=== PATIENT | female | born 1995 | race Caucasian/White ===

== ENCOUNTER 2024-09-06 19:47 | Inpatient (IN) | payer OTHER ==
--- NOTE | 2024-09-06 21:56 | ED ---
Recheck HPI - General Source: patient, RN notes reviewed Mode of arrival: ambulatory Limitations: no limitations <Kathie Guevara - Last Filed: 09/06/24 21:54> <Rachael Carey - Last Filed: 09/07/24 03:01> - General Chief Complaint: Recheck/Abnormal Lab/Rx Stated Complaint: R side blurred vision,feet swollen,Rash Time Seen by Provider: 09/06/24 21:54 - History of Present Illness Initial Comments: Quick [id number] female presenting for MS workup. States she was sent by [facility] Dr. White for an admission for an MS workup. Reports right- sided vision loss over the past week. She was diagnosed with optic neuritis by [facility] and told she has symptoms of MS. (Kathie Guevara) 29-year-old female presents to the emergency department for evaluation of visual changes. Patient states that s she has been dealing with blurred vision in her right eye for around 2 weeks. She states that she saw ophthalmology, Dr. White as an outpatient on Monday. He advised her to come to the emergency department because there was concern for optic neuritis. The patient states that she was unable to come in on Monday because of the court and therefore she presented today. She denies any fever, chills. She does admit to some pain above her right eye. She also endorses itching throughout her body (Rachael Carey) - Related Data Allergies Allergy/AdvReac Type Severity Reaction Status Date / Time No Known Allergies Allergy Verified 09/06/24 19:54 Review of Systems ROS Other: All systems not noted in ROS Statement are negative. <Kathie Guevara - Last Filed: 09/06/24 21:54> ROS Other: All systems not noted in ROS Statement are negative. <Rachael Carey - Last Filed: 09/07/24 03:01> ROS Statement: Those systems with pertinent positive or pertinent negative responses have been documented in the HPI. Past Medical History Past Medical History: No Reported History History of Any Multi-Drug Resistant Organisms: None Reported Past Surgical History: No Surgical Hx Reported Past Psychological History: No Psychological Hx Reported Smoking Status: Never smoker Past Alcohol Use History: None Reported Past Drug Use History: None Reported <Kathie Guevara - Last Filed: 09/06/24 21:54> General Exam Limitations: no limitations <Kathie Guevara - Last Filed: 09/06/24 21:54> Limitations: no limitations General appearance: alert, in no apparent distress Head exam: Present: atraumatic, normocephalic, normal inspection Eye exam: Present: PERRL, EOMI, other (Patient acuity right eye 20/70, left eye 20/40, intraocular pressures 10 bilaterally,). Absent: scleral icterus, conjunctival injection, periorbital swelling ENT exam: Present: normal exam, mucous membranes moist, TM's normal bilaterally, normal external ear exam Neck exam: Present: normal inspection. Absent: tenderness, meningismus, lymphadenopathy Respiratory exam: Present: normal lung sounds bilaterally. Absent: respiratory distress, wheezes, rales, rhonchi, stridor Cardiovascular Exam: Present: regular rate, normal rhythm, normal heart sounds. Absent: systolic murmur, diastolic murmur, rubs, gallop, clicks GI/Abdominal exam: Present: soft, normal bowel sounds. Absent: distended, tenderness, guarding, rebound, rigid Extremities exam: Present: normal inspection, full ROM, normal capillary refill. Absent: tenderness, pedal edema, joint swelling, calf tenderness Back exam: Present: normal inspection Neurological exam: Present: alert, oriented X3, CN II-XII intact Expanded Patient oriented to: Present: person, place, time Speech: Present: fluid speech Cranial nerves: EOM's Intact: Normal, Facial Sensation: Normal, Facial Palsy with Forehead Movement: Normal (None) Ataxia: Absent: yes Cerebellar function: Finger to Nose: Normal, Heel to Johnson: Normal Sensory exam: Upper Extremity Light Touch: Normal, Lower Extremity Light Touch: Normal Motor strength exam: RUE: 5, LUE: 5, RLE: 5, LLE: 5 Eye Response: (4) open spontaneously Motor Response: (6) obeys commands Verbal Response: (5) oriented Vanessa Total: 15 Psychiatric exam: Present: normal affect, normal mood Skin exam: Present: warm, dry, intact, normal color. Absent: rash <Rachael Carey - Last Filed: 09/07/24 03:01> - General Exam Comments Initial Comments: Visual Physical Exam Vital signs reviewed General: Well-appearing, nontoxic, no acute distress. Head: Normocephalic, atraumatic Eyes: PERRLA, EOMI ENT: Airway patent Chest: Nonlabored breathing Skin: No visual rash, normal skin tone Neuro: Alert and oriented 3 Musculoskeletal: No gross abnormalities (Kathie Guevara) Course Vital Signs 09/06/24 09/07/24 09/07/24 19:50 00:58 02:59 Temperature 98.3 F 97.6 F 98.1 F Pulse Rate 107 H 89 82 Respiratory 20 22 18 Rate Blood Pressure 148/87 120/84 119/78 O2 Sat by Pulse 100 100 98 Oximetry Medical Decision Making <Kathie Guevara - Last Filed: 09/06/24 21:54> - Lab Data Result diagrams: 09/06/24 22:41 09/06/24 22:41 <Rachael Carey - Last Filed: 09/07/24 03:01> - Medical Decision Making I completed the quick note portion of this chart signed Kathie Guevara PA-C (Kathie Guevara) Was pt. sent in by a medical professional or institution ([facility], [facility], urgent care, hospital, or longterm...) When possible be specific @ -No Did you speak to anyone other than the patient for history (EMS, parent, family, police, friend...)? What history was obtained from this source @ -No Did you review nursing and triage notes (agree or disagree)? Why? @ -I reviewed and agree with nursing and triage notes Were old charts reviewed (outside hosp., previous admission, EMS record, old EKG, old radiological studies, urgent care reports/EKG's, longterm records)? Report findings @ -No old charts were reviewed Differential Diagnosis (chest pain, altered mental status, abdominal pain women, abdominal pain men, vaginal bleeding, weakness, fever, dyspnea, syncope, headache, dizziness, GI bleed, back pain, seizure, CVA, palpatations, mental health, musculoskeletal)? @ -Differential Headache: Migraine, tension, cluster, carbon monoxide, central venous thrombosis, pension karma temporal arteritis, acute closure glaucoma, intercranial hemorrhage, mastoiditis, sinusitis, head injury, this is not meant to be an all-inclusive li st. EKG interpreted by me (3pts min.). @ -None X-rays interpreted by me (1pt min.). @ -None done CT interpreted by me (1pt min.). @ -CT brain shows no acute process C CTA of the head and neck shows no significant stenosis, no evidence of dissection U/S interpreted by me (1pt. min.). @ -None done What testing was considered but not performed or refused? (CT, X-rays, U/S, labs)? Why? @ -None What meds were considered but not given or refused? Why? @ -None Did you discuss the management of the patient with other professionals (professionals i.e. DrKamini, PA, [facility], lab, RT, psych nurse, high school social studies tutor, fruit or nut farm worker, teacher, [employer] plans staff officer, high risk case manager)? Give summary @ -Management discussed with Dr. Lopez White recommends high-dose steroids, 1000 mg Solu-Medrol Was smoking cessation discussed for >3mins.? @ -No Was critical care preformed (if so, how long)? @ -No Were there social determinants of health that impacted care today? How? (Homelessness, low income, unemployed, alcoholism, drug addiction, transportation, low edu. Level, literacy, decrease access to med. care, retirement, rehab)? @ -No Was there de-escalation of care discussed even if they declined (Discuss DNR or withdrawal of care, Hospice)? DNR status @ -No What co-morbidities impacted this encounter? (DM, HTN, Smoking, COPD, CAD, Cancer, CVA, ARF, Chemo, Hep., AIDS, mental health diagnosis, sleep apnea, morbid obesity)? @ -None Was patient admitted / discharged? Hospital course, mention meds given and route, prescriptions, significant lab abnormalities, going to OR and other pertinent info. @ -Admitted patient presented emergency department for evaluation of visual changes x 2 weeks. Saw her gas pump attendant who was concerned about optic neuritis as a presenting symptom of MS and she was advised to come to the emerg ency department. Patient does note family history. Laboratory studies obtained including CBC, CMP, CRP. CBC on actionable, no significant leukocytosis, hemoglobin 12.8; CMP shows very mild transaminitis, CRP 1.1. ESR is pending. Also pending is KIMBERLY, MARICARMEN, hemoglobin A1c, HIV, Lyme antibody, QuantiFERON, RF, treponema antibody, B12, TSH. CT brain and CTA of the head and neck were obtained pending the results. The patient will be admitted to the hospital on high-dose steroids per the recommendation of Dr. White. She is understanding agreeable with this plan. Patient stable at time of admission. Case discussed with Dr. Mar Undiagnosed new problem with uncertain prognosis? @ -No Drug Therapy requiring intensive monitoring for toxicity (Heparin, Nitro, Insulin, Cardizem)? @ -No Were any procedures done? @ -No Diagnosis/symptom? @ -Visual changes, headache Acute, or Chronic, or Acute on Chronic? @ -Acute Uncomplicated (without systemic symptoms) or Complicated (systemic symptoms)? @ -Complicated Side effects of treatment? @ -No Exacerbation, Progression, or Severe Exacerbation? @ -No Poses a threat to life or bodily function? How? (Chest pain, [place], [place], pneumonia, PE, COPD, DKA, ARF, appy, cholecystitis, CVA, Diverticulitis, Homicidal, Suicidal, threat to staff... and all critical care pts) @ -No (Rachael Carey) - Lab Data Lab Results 09/06/24 09/06/24 Range/Units 22:41 22:41 WBC 6.2 (3.8-10.6) k/uL RBC 4.37 (3.80-5.40) m/uL Hgb 12.8 (11.4-16.0) gm/dL Hct 38.7 (34.0-46.0) % MCV 88.5 (80.0-100.0) fL MCH 29.3 (25.0-35.0) pg MCHC 33.1 (31.0-37.0) g/dL RDW 13.2 (11.5-15.5) % Plt Count 235 (150-450) k/uL MPV 10.0 Neutrophils % 59 % Lymphocytes % 27 % Monocytes % 6 % Eosinophils % 6 % Basophils % 0 % Neutrophils # 3.6 (1.3-7.7) k/uL Lymphocytes # 1.7 (1.0-4.8) k/uL Monocytes # 0.4 (0-1.0) k/uL Eosinophils # 0.4 (0-0.7) k/uL Basophils # 0.0 (0-0.2) k/uL ESR 28 H (0-20) mm/Hr Sodium 137 (137-145) mmol/L Potassium 3.8 (3.5-5.1) mmol/L Chloride 102 (98-107) mmol/L Carbon Dioxide 29 (22-30) mmol/L Anion Gap 6 mmol/L BUN 6 L (7-17) mg/dL Creatinine 0.76 (0.52-1.04) mg/dL Est GFR (CKD-EPI)AfAm >90 (>60 ml/min/1.73 sqM) Est GFR (CKD-EPI)NonAf >90 (>60 ml/min/1.73 sqM) Glucose 92 (74-99) mg/dL Calcium 9.1 (8.4-10.2) mg/dL Total Bilirubin 0.2 (0.2-1.3) mg/dL AST 39 H (14-36) U/L ALT 37 H (4-34) U/L Alkaline Phosphatase 84 (38-126) U/L C-Reactive Protein 1.1 H (<1.0) mg/dL Total Protein 6.6 (6.3-8.2) g/dL Albumin 4.0 (3.5-5.0) g/dL Disposition <Kathie Guevara - Last Filed: 09/06/24 21:54> Is patient prescribed a controlled substance at d/c from ED?: No <Rachael Carey - Last Filed: 09/07/24 03:01> Clinical Impression: Blurred vision, Headache Disposition: ADMITTED IP TO THIS HOSP Condition: Stable
[2024-09-06 23:12] LABS: Basophils % (A) 0 %; Eosinophils # (A) 0.4 k/uL (0-0.7); Eosinophils % (A) 6 %; HCT 38.7 % (34.0-46.0); HGB 12.8 gm/dL (11.4-16.0); Lymphocytes # (A) 1.7 k/uL (1.0-4.8); Lymphocytes % (A) 27 %; MCH 29.3 pg (25.0-35.0); MCHC 33.1 g/dL (31.0-37.0); MCV 88.5 fL (80.0-100.0); Monocytes # (A) 0.4 k/uL (0-1.0); Monocytes % (A) 6 %; Neutrophils # (A) 3.6 k/uL (1.3-7.7); Neutrophils % (A) 59 %; Platelet Count 235 k/uL (150-450); RBC 4.37 m/uL (3.80-5.40); RDW 13.2 % (11.5-15.5); WBC 6.2 k/uL (3.8-10.6)
[2024-09-06 23:37] LABS: ALT 37 U/L (4-34); AST 39 U/L (14-36); African American GFR (CKD) >90 (>60 ml/min/1.73 sqM); Alkaline Phosphatase 84 U/L (38-126); Anion Gap 6 mmol/L; Blood Urea Nitrogen 6 mg/dL (7-17); C Reactive Protein 1.1 mg/dL (<1.0); Calcium 9.1 mg/dL (8.4-10.2); Carbon Dioxide 29 mmol/L (22-30); Chloride 102 mmol/L (98-107); Glucose 92 mg/dL (74-99); Non-African American GFR(CKD) >90 (>60 ml/min/1.73 sqM); Potassium 3.8 mmol/L (3.5-5.1); Sodium 137 mmol/L (137-145); Total Bilirubin 0.2 mg/dL (0.2-1.3); Total Protein 6.6 g/dL (6.3-8.2)
[2024-09-07] MEDS: methylPREDNISolone SOD SUCCI 125 MG/2 ML VIAL IV STA (00:42)
[2024-09-07] MEDS: methylPREDNISolone SOD SUCCIN 1,000 MG in SODIUM CHLORIDE 0.9% 250 ML IVPB ONE (00:54)
[2024-09-07] MEDS ORDERED: NALOXONE 0.4 MG/ML 1 ML VIAL IV PRN (01:10)
--- NOTE | 2024-09-07 01:27 | CT ---
EXAM: CT Angiography Head With Intravenous Contrast CLINICAL HISTORY: ITS.REASON CT Reason: vision loss TECHNIQUE: Axial computed tomographic angiography images of the head with intravenous contrast. CTDI is 9.6 mGy and DLP is 9.6 mGy-cm. This CT exam was performed using one or more of the following dose reduction techniques: automated exposure control, adjustment of the mA and/or kV according to patient size, and/or use of iterative reconstruction technique. MIP reconstructed images were created and reviewed. COMPARISON: No relevant prior studies available. FINDINGS: Right internal carotid artery: No significant stenosis. 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 Right anterior cerebral artery: No significant stenosis. No aneurysm. Right middle cerebral artery: No significant stenosis. No aneurysm. Right posterior cerebral artery: No significant stenosis. No aneurysm. Right vertebral artery: Unremarkable. Left internal carotid artery: No significant stenosis. No aneurysm. Left anterior cerebral artery: No significant stenosis. No aneurysm. Left middle cerebral artery: No significant stenosis. No aneurysm. Left posterior cerebral artery: No significant stenosis. No aneurysm. Left vertebral artery: Unremarkable. Basilar artery: No significant stenosis. No aneurysm. IMPRESSION: No significant stenosis. 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 EXAM: CT Angiography Neck With Intravenous Contrast CLINICAL HISTORY: ITS.REASON CT Reason: vision loss TECHNIQUE: Routine carotid CT angiography protocol was performed with intravenous contrast. NASCET criteria using the distal ICAs for comparison were used for evaluation of stenoses. CTDI is 13.2 mGy and DLP is 514.9 mGy-cm. This CT exam was performed using one or more of the following dose reduction techniques: automated exposure control, adjustment of the mA and/or kV according to patient size, and/or use of iterative reconstruction technique. MIP reconstructed images were created and reviewed. COMPARISON: None. FINDINGS: VASCULATURE: Right common carotid artery: No significant stenosis. No dissection. Right internal carotid artery: No significant stenosis. No dissection. Right vertebral artery: No significant stenosis. No dissection. Left common carotid artery: No significant stenosis. No dissection. Left internal carotid artery: No significant stenosis. No dissection. Left vertebral artery: No significant stenosis. No dissection. NECK: Lung apices: 15 mm fibrotic process in the right lung apex CAROTID STENOSIS REFERENCE USING NASCET CRITERIA: % ICA stenosis = (1 - narrowest ICA diameter/diameter of distal cervical ICA) x 100. Mild - <50% stenosis. Moderate - 50-69% stenosis. Severe - 70-94% stenosis. Near occlusion - 95-99% stenosis. Occluded - 100% stenosis. IMPRESSION: No significant stenosis. 15 mm fibrotic process in the right lung apex, correlate with history of granulomatous disease.
[2024-09-07] MEDS: SODIUM CHLORIDE 0.9% 1,000 ML IV SCH (01:34)
[2024-09-07] MEDS: MORPHINE SULFATE 4 MG/ML SYRINGE IV PRN (01:35)
--- NOTE | 2024-09-07 01:44 | CT ---
EXAM: CT Head Without Intravenous Contrast CLINICAL HISTORY: ITS.REASON CT Reason: vision loss TECHNIQUE: Axial computed tomography images of the head/brain without intravenous contrast. CTDI is 48.8 mGy and DLP is 1042 mGy-cm. This CT exam was performed using one or more of the following dose reduction techniques: automated exposure control, adjustment of the mA and/or kV according to patient size, and/or use of iterative reconstruction technique. COMPARISON: No relevant prior studies available. FINDINGS: Brain: No acute intracranial hemorrhage, mass effect, or parenchymal edema. No evident loss of mcdonald-white matter differentiation. No significant white matter disease. Ventricles: No hydrocephalus. Bones/joints: No acute fracture. Soft tissues: Unremarkable. Sinuses: Unremarkable as visualized. Mastoid air cells: No significant mastoid effusion. IMPRESSION: No acute intracranial process.
[2024-09-07 02:01] LABS: Erythrocyte Sedimentation Rate 28 mm/Hr (0-20)
[2024-09-07 09:37] LABS: Rheumatoid Factor, Qnt <15 IU/mL (0-15)
--- NOTE | 2024-09-07 10:17 | P.HPIM ---
History of Present Illness H&P Date: 09/07/24 Patient is a 29-year-old female with no significant past medical history came to the ER yesterday after she was diagnosed with optic neuritis by outpatient lug loader. Patient reports that she endorsed right-sided blurry vision a week ago associated with pain behind the eye especially with movement. Additionally, patient has been experiencing frontal headache for the last 6 months. Headaches have gotten worse for the last 2 weeks. Patient also reports episodes of nosebleed. She has also been endorsing generalized weakness, loss of balance, numbness and tingling in upper and lower extremities especially in her fingertips. Patient reports that she has a strong family history of mult iple sclerosis in cousins. Otherwise, patient denies nausea, vomiting, dizziness, chest pain, shortness of breath, abdominal pain, loss of consciousness, or fall. Patient denies any recent upper respiratory tract infection. Patient was evaluated by lug loader recently and was advised to come to the ER for further evaluation for multiple sclerosis in the setting of recently diagnosed optic neuritis. Patient reports that she continue to feel blurry in her right eye with only 25% of improvement from last 1 week. Initial laboratory evaluation in the ER shows WBC 6.2, hemoglobin 12.8, platelet count 235, ESR 28, sodium 137 potassium 3.8, BUN 6, creatinine 0.76, calcium 9.1, total bili 0.2, AST 39, ALT 37, ALP 84, CRP 1.1, vitamin B12 1282, TSH 2.5, rheumatoid factor less than 15 CT angio of the head is unremarkable for any significant stenosis. There is 15 mm fibrotic process in the right lung apex. Brain CT shows no acute intracranial process. Review of systems: Pertinent positives and negatives as discussed in HPI, a complete review of systems was performed and all other systems are negative. Physical examination: Vital signs reviewed General: non toxic, no distress, appears at stated age, obese Derm: no unusual rashes/lesions, warm Head: atraumatic, normocephalic, symmetric Eyes: EOMI, no lid lag, anicteric sclera, pupils equal round reactive to light ENT: Nose and ears atraumatic Neck: No cervical lymphadenopathy, trachea midline, supple Mouth: no lip lesion, mucus membranes moist Cardiovascular: S1S2 reg, no murmur, positive dorsalis pedis pulse bilateral, no edema Lungs: CTA bilateral, no rhonchi, no rales, no accessory muscle use Abdominal: soft, nontender to palpation, no guarding Ext: muscle strength 5 out of 5 in all 4 extremities grossly, no gross muscle atrophy, no contractures, Neuro: CN II-XI grossly intact, no gross focal neuro deficits Psych: Alert, oriented, appropriate affect Assessment/Plan: This is a Patient is a 29-year-old female with no significant past medical history came to the ER yesterday after she was diagnosed with optic neuritis by outpatient lug loader. . Case was discussed with ER provider and decision was made to admit the patient for multiple sclerosis Labs and images: Initial laboratory evaluation in the ER shows WBC 6.2, hemoglobin 12.8, platelet count 235, ESR 28, sodium 137 potassium 3.8, BUN 6, creatinine 0.76, calcium 9.1, total bili 0.2, AST 39, ALT 37, ALP 84, CRP 1.1, vitamin B12 1282, TSH 2.5, rheumatoid factor less than 15 CT angio of the head is unremarkable for any significant stenosis. There is 15 mm fibrotic process in the right lung apex. Brain CT shows no acute intracranial process. Active: #Outpatient diagnosis of optic neuritis #Suspected multiple sclerosis Patient received 1000 mg of IV Solu-Medrol in ED Consult neurology Order workup for infectious and inflammatory etiologies KIMBERLY, ESR, CRP, MARICARMEN, HIV, syphilis, TB, RF, Lyme antibody TSH, vitamin B12 and serum folate Order MRI of the brain and orbits with contrast Continue with IV normal saline at 100 cc/h Monitor CBC #Transaminases Monitor CMP #Incidental finding of 15 mm fibroid mass in the right lung apex CT angio as above Consider outpatient follow-up Chronic conditions Anxiety, depression Resume home medications DVT prophylaxis: SCDs GI prophylaxis: None F: IV normal saline at 100 cc/h E: Replete as needed N: Regular diet A: Ambulatory The patient is admitted with an anticipated more than than 2 midnight stay for evaluation of multiple sclerosis CODE STATUS: Full code Discussed with: Patient Anticipated discharge place: Pending clinical course Dictation was produced using [employer] software. Please excuse any gra mmatical, word or spelling errors. Past Medical History Past Medical History: No Reported History History of Any Multi-Drug Resistant Organisms: None Reported Past Surgical History: No Surgical Hx Reported Past Anesthesia/Blood Transfusion Reactions: No Reported Reaction Additional Past Anesthesia/Blood Transfusion Reaction / Comment(s): Pt has never received anesthesia or a blood transfusion Past Psychological History: No Psychological Hx Reported Smoking Status: Never smoker Past Alcohol Use History: None Reported Past Drug Use History: None Reported - Past Family History Mother Family Medical History: Congestive Heart Failure (CHF), Liver Disease, Renal Disease Medications and Allergies Home Medications Medication Instructions Recorded Confirmed Type Buprenorphine/Naloxone 8Mg/2Mg 1 film SL TID PRN 09/07/24 09/07/24 History [Suboxone 8-2Mg Film] Escitalopram [Lexapro] 10 mg PO HS 09/07/24 09/07/24 History Omeprazole 20 mg PO DAILY 09/07/24 09/07/24 History hydrOXYzine HCL [Atarax] 25 mg PO BID PRN 09/07/24 09/07/24 History Allergies Allergy/AdvReac Type Severity Reaction Status Date / Time No Known Allergies Allergy Verified 09/07/24 12:32 Physical Exam Vitals: Vital Signs Temp Pulse Pulse Resp BP BP Pulse Ox 09/07/24 03:34 98.4 F 73 16 127/85 99 09/07/24 02:59 98.1 F 82 18 119/78 98 09/07/24 00:58 97.6 F 89 22 120/84 100 09/06/24 19:50 98.3 F 107 H 20 148/87 100 Intake and Output 09/06/24 09/07/24 09/07/24 22:59 06:59 14:59 Intake Total 1480 Balance 1480 Intake: Intake, IV Titration 300 Amount Sodium Chloride 0.9% 1, 300 000 ml @ 100 mls/hr IV . Q10H EDEN Rx#:[id number] Oral 1180 Other: Voiding Method Toilet # Voids 2 Weight 87.997 kg 87.997 kg Results CBC & Chem 7: 09/06/24 22:41 09/06/24 22:41 Labs: Abnormal Lab Results - Last 24 Hours (Table) 09/06/24 09/06/24 Range/Units 22:41 22:41 ESR 28 H (0-20) mm/Hr BUN 6 L (7-17) mg/dL AST 39 H (14-36) U/L ALT 37 H (4-34) U/L C-Reactive Protein 1.1 H (<1.0) mg/dL Thrombosis Risk Factor Assmnt - Choose All That Apply Any of the Below Risk Factors Present?: Yes Each Factor Represents 1 point: Obesity (BMI >25) Other Risk Factors: No Other congenital or acquired thrombophilia - If yes, enter type in comment: No Thrombosis Risk Factor Assessment Total Risk Factor Score: 1 Thrombosis Risk Factor Assessment Level: Low Risk
--- NOTE | 2024-09-07 12:42 | MR ---
EXAMINATION TYPE: MR brain/orbits wo/w con DATE OF EXAM: 09/07/2024 12:29 PM COMPARISON: None. CLINICAL INDICATION: Female, 29 years old with history of History of right optic neuritis; evaluate f or MS, History of right optic neuritis; evaluate for MS IV Contrast: 9 cc Gadobutrol (None if empty) TECHNIQUE: Multiplanar, multisequence images of the brain and brainstem is performed without and with IV contras t, utilizing 9 mL intravenous Gadobutrol . On the T1-weighted sagittal images the midline structures including the craniovertebral junction rela tionships are normal. The ventricles, basal cisterns and sulci over the convexities are within normal limits and there is n o mass effect or shift of the midline structures. On the T2 and FLAIR weighted images there are scattered focal areas of abnormal increased signal inte nsity predominantly within the subcortical white matter. This is a nonspecific finding could represen t demyelinating disease although the location and configuration of the white matter abnormalities is not typical of multiple sclerosis. There is no mass effect or shift of the midline structures. On the diffusion-weighted images, there is no diffusion restriction, acute ischemic event or acute in flammation within the white matter. Following contrast administration, there is no pathological enhan cement throughout the brain parenchyma. High-resolution imaging through the orbits reveal no intra or extraconal masses. The globes are intac t and symmetric bilaterally. There is no swelling of the optical nerves and no enhancement of the opt ic nerves following contrast. IMPRESSION: 1. Mild nonspecific multifocal areas of abnormal increased signal intensity predominantly within the subcortical white matter both cerebral hemispheres. Could represent demyelinating disease but this is a nonspecific finding as described above. 2. No evidence of optic neuritis. 3. No mass, mass effect or acute ischemic event. No pathological enhancement throughout the brain par enchyma. [facility], , 09/07/2024 12:39 PM
[2024-09-07] MEDS: ACETAMINOPHEN TAB 325 MG TAB PO PRN (12:51)
[2024-09-07] MEDS ORDERED: hydrOXYzine HCL 25 MG TAB PO PRN (16:43)
[2024-09-07] MEDS: PANTOPRAZOLE 40 MG TABLET PO SCH (16:59)
[2024-09-07] MEDS: ESCITALOPRAM 10 MG TAB PO SCH (20:06)
[2024-09-08 07:36] LABS: ALT 34 U/L (4-34); AST 28 U/L (14-36); African American GFR (CKD) >90 (>60 ml/min/1.73 sqM); Albumin 3.2 g/dL (3.5-5.0); Albumin/Globulin Ratio 1.3; Alkaline Phosphatase 70 U/L (38-126); Anion Gap 3 mmol/L; Blood Urea Nitrogen 8 mg/dL (7-17); Calcium 8.5 mg/dL (8.4-10.2); Carbon Dioxide 24 mmol/L (22-30); Chloride 110 mmol/L (98-107); Globulin 2.4 g/dL; Glucose 131 mg/dL (74-99); Non-African American GFR(CKD) >90 (>60 ml/min/1.73 sqM); Potassium 4.1 mmol/L (3.5-5.1); Sodium 137 mmol/L (137-145); Total Bilirubin 0.2 mg/dL (0.2-1.3); Total Protein 5.6 g/dL (6.3-8.2)
[2024-09-08] MEDS: methylPREDNISolone SOD SUCCIN 1,000 MG in SODIUM CHLORIDE 0.9% 250 ML IVPB SCH (10:54)
--- NOTE | 2024-09-08 22:35 | P.PN ---
Subjective Progress Note Date: 09/08/24 Patient is a 29-year-old female with no significant past medical history came to the ER yesterday after she was diagnosed with optic neuritis by outpatient general service technician. Patient reports that she endorsed right-sided blurry vision a week ago associated with pain behind the eye especially with movement. Additionally, patient has been experiencing frontal headache for the last 6 months. Headaches have gotten worse for the last 2 weeks. Patient also reports episodes of nosebleed. She has also been endorsing generalized weakness, loss of balance, numbness and tingling in upper and lower extremities especially in her fingertips. Patient reports that she has a strong family history of multiple sclerosis in cousins. Otherwise, patient denies nausea, vomiting, dizziness, chest pain, shortness of breath, abdominal pain, loss of consciousness, or fall. Patient denies any recent upper respiratory tract infection. Patient was evaluated by general service technician recently and was advised to come to the ER for further evaluation for multiple sclerosis in the setting of recently diagnosed optic neuritis. Patient reports that she continue to feel blurry in her right eye with only 25% of improvement from last 1 week. Initial laboratory evaluation in the ER shows WBC 6.2, hemoglobin 12.8, platelet count 235, ESR 28, sodium 137 potassium 3.8, BUN 6, creatinine 0.76, calcium 9.1, total bili 0.2, AST 39, ALT 37, ALP 84, CRP 1.1, vitamin B12 1282, TSH 2.5, rheumatoid factor less than 15 CT angio of the head is unremarkable for any significant stenosis. There is 15 mm fibrotic process in the right lung apex. Brain CT shows no acute intracranial process. Review of systems: Pertinent positives and negatives as discussed in HPI, a complete review of systems was performed and all other systems are negative. 09/08/2024 Patient is awake alert and oriented. Still complains of right eye pain with m ovement. No complaints of headache or dizziness. No fever no chills. Patient was started on methylprednisolone IV 1 g daily. Neurology is on board. MRI of the brain/orbits showed mild nonspecific multifocal areas of abnormal increased signal intensity predominantly within the subcortical white matter both cerebral hemispheres. Could represent demyelinating disease but this is nonspecific finding. No evidence of optic neuritis. Laboratory data and current medications reviewed. Physical examination: Vital signs reviewed General: non toxic, no distress, appears at stated age, obese Derm: no unusual rashes/lesions, warm Head: atraumatic, normocephalic, symmetric Eyes: EOMI, no lid lag, anicteric sclera, pupils equal round reactive to light ENT: Nose and ears atraumatic Neck: No cervical lymphadenopathy, trachea midline, supple Mouth: no lip lesion, mucus membranes moist Cardiovascular: S1S2 reg, no murmur, positive dorsalis pedis pulse bilateral, no edema Lungs: CTA bilateral, no rhonchi, no rales, no accessory muscle use Abdominal: soft, nontender to palpation, no guarding Ext: muscle strength 5 out of 5 in all 4 extremities grossly, no gross muscle atrophy, no contractures, Neuro: CN II-XI grossly intact, no gross focal neuro deficits Psych: Alert, oriented, appropriate affect Assessment/Plan: This is a Patient is a 29-year-old female with no significant past medical history came to the ER yesterday after she was diagnosed with optic neuritis by outpatient general service technician. . Case was discussed with ER provider and decision was made to admit the patient for multiple sclerosis Labs and images: Initial laboratory evaluation in the ER shows WBC 6.2, hemoglobin 12.8, platelet count 235, ESR 28, sodium 137 potassium 3.8, BUN 6, creatinine 0.76, calcium 9.1, total bili 0.2, AST 39, ALT 37, ALP 84, CRP 1.1, vitamin B12 1282, TSH 2.5, rheumatoid factor less than 15 CT angio of the head is unremarkable for any significant stenosis. There is 15 mm fibrotic process in the right lung apex. Brain CT shows no acute intracranial process. Active: #Outpatient diagnosis of optic neuritis #Suspected multiple sclerosis Patient received 1000 mg of IV Solu-Medrol in ED Neurology is on board. Continue with IV Solu-Medrol 1000 mg daily Order workup for infectious and inflammatory etiologies Ordered KIMBERLY, ESR, CRP, MARICARMEN, HIV, syphilis, TB, RF, Lyme antibody TSH, vitamin B12 and serum folate MRI of the brain and orbits with contrast report as above. Continue with IV normal saline at 100 cc/h Monitor CBC. Continue to monitor #Transaminases Monitor CMP. Improved. #Incidental finding of 15 mm fibroid mass in the right lung apex CT angio as above Consider outpatient follow-up Chronic conditions Anxiety, depression Resume home medications DVT prophylaxis: SCDs GI prophylaxis: None F: IV normal saline at 100 cc/h E: Replete as needed N: Regular diet A: Ambulatory The patient is admitted with an anticipated more than than 2 midnight stay for evaluation of multiple sclerosis CODE STATUS: Full code Discussed with: Patient Anticipated discharge place: Pending clinical course Dictation was produced using [employer] dictation software. Please excuse any grammatical, word or spelling errors. Objective - Vital Signs Vital signs: Vital Signs Temp 98.0 F 09/08/24 12:18 Pulse 82 09/08/24 12:18 Resp 16 09/08/24 12:18 BP 111/73 09/08/24 12:18 Pulse Ox 99 09/08/24 12:18 FiO2 Intake & Output 09/07/24 09/08/24 09/08/24 18:59 06:59 18:59 Intake Total 0 1690 240 Output Total 1 Balance 2038 1690 240 Intake: Intake, IV Titration 1100 Amount Sodium Chloride 0.9% 1, 1100 000 ml @ 100 mls/hr IV . Q10H [facility] Rx#:[id number] Oral 2040 590 240 Output: Urine/Stool Mix 1 Other: Voiding Method Toilet # Voids 5 3 - Labs CBC & Chem 7: 09/06/24 22:41 09/08/24 06:55 Labs: Abnormal Lab Results - Last 24 Hours (Table) 09/08/24 Range/Units 06:55 Chloride 110 H (98-107) mmol/L Glucose 131 H (74-99) mg/dL Total Protein 5.6 L (6.3-8.2) g/dL Albumin 3.2 L (3.5-5.0) g/dL
[2024-09-09] MEDS: MELATONIN 3 MG TABLET PO PRN (01:38)
--- NOTE | 2024-09-09 08:32 | P.CNNES ---
History of Present Illness Consult date: 09/07/24 Requesting physician: Rachael Carey Reason for Consult: ?MS, optic neuritis History of Present Illness: This is a telemedicine neurology consultation performed today on 09/07/2024 in collaboration with Shantell Sarabia. Patient is a 29-year-old right-handed female came to the hospital yesterday at 7:47 PM for visual disturbance. Patient states she cannot see out of her right eye, only can see shadows, very blurred vision along with painful eye movements. She just got new glasses 3-1/2 months ago. Patient says that she came to ER on 08/30/2024 as she was having trouble with seeing out of right eye. She was re commended to follow with an rivet thrower. Patient saw an rivet thrower on 09/03/2024, who felt patient may have optic neuritis. Therefore she came to the ER. Vital signs on arrival blood pressure 148/87 pulse rate 107 temperature 98.3. Blood test shows normal CBC, basic metabolic panel. AST is 39, ALT 37. B12 1282, TSH 2.57, normal. Rheumatoid factor negative. CT head showed no acute intracranial process. I personally reviewed CT head, agree with the findings. CTA of head and neck revealed no significant stenosis. 15 mm fibrotic process in the right lung apex, correlate with history of granulomatous disease. Home medications include hydroxyzine for some rash, omeprazole, Lexapro and Suboxone. Patient says that the neurological symptoms started about 6 months ago when she woke up one morning and has "peed in the bed". She has been sweating, has developed some rash (for which she has been given hydroxyzine), hurting in the back and head, sore feet. Also has been having some flashes, pain, swelling in the feet for last 6 months. She would see her PCP and was given courses of steroids periodically. She denies any nausea. She has vertigo "all the time" on and off for last 2 years. She has to sit down, and it lasts for about half an hour, particularly if she moves around a lot. Her balance is not good, and worse in the last 6 months. She was "always clumsy". She drops things. Patient has a lot of vague symptoms. Patient's cousin and paternal uncle have MS. 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 Patient has smoked half pack per day for 5 years, quit 2 years ago. Denies any alcohol use. She has 2 children. Review of Systems All pertinent positive and negative review of systems mentioned HPI. Otherwise unremarkable. Past Medical History Past Medical History: No Reported History History of Any Multi-Drug Resistant Organisms: None Reported Past Surgical History: No Surgical Hx Reported Past Anesthesia/Blood Transfusion Reactions: No Reported Reaction Additional Past Anesthesia/Blood Transfusion Reaction / Comment(s): Pt has never received anesthesia or a blood transfusion Past Psychological History: No Psychological Hx Reported Smoking Status: Never smoker Past Alcohol Use History: None Reported Past Drug Use History: None Reported - Past Family History Mother Family Medical History: Congestive Heart Failure (CHF), Liver Disease, Renal Disease Medications and Allergies Home Medications Medication Instructions Recorded Confirmed Type Buprenorphine/Naloxone 8Mg/2Mg 1 film SL TID PRN 09/07/24 09/07/24 History [Suboxone 8-2Mg Film] Escitalopram [Lexapro] 10 mg PO HS 09/07/24 09/07/24 History Omeprazole 20 mg PO DAILY 09/07/24 09/07/24 History hydrOXYzine HCL [Atarax] 25 mg PO BID PRN 09/07/24 09/07/24 History Allergies Allergy/AdvReac Type Severity Reaction Status Date / Time No Known Allergies Allergy Verified 09/07/24 12:32 Physical Examination - Vital Signs Vital Signs: Vital Signs Temp Pulse Pulse Resp BP BP Pulse Ox 09/07/24 07:37 97.6 F 74 16 108/70 97 09/07/24 03:34 98.4 F 73 16 127/85 99 09/07/24 02:59 98.1 F 82 18 119/78 98 09/07/24 00:58 97.6 F 89 22 120/84 100 09/06/24 19:50 98.3 F 107 H 20 148/87 100 Intake and Output 09/06/24 09/07/24 09/07/24 22:59 06:59 14:59 Intake Total 1480 240 Balance 1480 240 Intake: Intake, IV Titration 300 Amount Sodium Chloride 0.9% 1, 300 000 ml @ 100 mls/hr IV . Q10H [facility] Rx#:[id number] Oral 1180 240 Other: Voiding Method Toilet # Voids 2 Weight 87.997 kg 87.997 kg Patient is a young female, in no acute distress. Patient is alert awake oriented to time place and person. Speech and language functions are normal. Patient can name and repeat very well. No aphasia or dysarthria. Attention, concentration and fund of knowledge is adequate. On cranial nerve examination, pupils are equal, round and reacting to light, visual alejandra are full on confrontation, with no neglect on double simultaneous stimulation. Extraocular muscles are intact with no nystagmus. Face is sy mmetric, tongue protrudes to the midline. Palatal elevation and sensation normal, hearing and shoulder shrug normal, facial sensation feeling "stronger" on the left side of the face as compared to the right. On muscle strength testing, there is no pronator drift and the strength is normal in arms distally and proximally. In the lower extremities, regarding hip flexion, she is able to raise her legs only 1-2 inch off the bed, and the strength is 5 on the right 4 left. Ankle dorsiflexion 5 bilaterally. Deep tendon reflexes are symmetric 1 in the arms and legs Sensory to touch she was feeling "stronger" on the right side. Cerebellar function showed no ataxia for qtcenx-ax-nhnc testing. No dysdiadochokinesia. No ataxia for oxdo-yh-xnny testing on either side. Tone and bulk of muscles normal. Gait deferred.. On general examination, there is no carotid bruit or murmur, S1-S2 audible. Chest is clear on consultation. Abdomen is soft nontender. No organomegaly, bowel sounds present. Peripheral pulses are present. No peripheral edema. Results - Laboratory Findings CBC and BMP: 09/06/24 22:41 09/08/24 06:55 Abnormal Lab Findings: Abnormal Labs 09/06/24 09/06/24 09/07/24 22:41 22:41 22:41 ESR 28 H BUN 6 L AST 39 H ALT 37 H C-Reactive Protein 1.1 H Vitamin B12 1282.0 H Assessment and Plan Assessment: * 29-year-old female admitted with one week history of painful right eye movement and right eye vision loss. Possible optic neuritis. Rule out MS. * Anxiety/depression Plan: * Patient undergoing MRI of the brain and orbits with and without contrast later this evening. * Patient has received Solu-Medrol 1 g IV PB at midnight. * If the MRI of the brain shows demyelination, we will continue Solu-Medrol for 5 days. * Patient is also undergoing some rheumatologic workup. * We will follow. Thank you for the consult. Time with Patient: Greater than 30
--- NOTE | 2024-09-09 08:43 | P.PN ---
Subjective Progress Note Date: 09/08/24 This is a telemedicine neurology follow-up performed in collaboration with Shantell Sarabia. Patient was seen for follow-up. Patient denies any improvement in her vision of her right eye. She is sitting comfortably in the bed. Denies any side effects of medication. Objective - Vital Signs Vital signs: Vital Signs Temp 97.8 F 09/09/24 07:29 Pulse 74 09/09/24 07:29 Resp 16 09/09/24 07:29 BP 105/56 09/09/24 07:29 Pulse Ox 92 L 09/09/24 07:29 FiO2 Intake & Output 09/08/24 09/09/24 09/09/24 18:59 06:59 18:59 Intake Total 1560 590 Balance 1560 590 Intake: Oral 1560 590 Other: Voiding Method Toilet # Voids 5 3 - Exam Examination essentially unchanged. She is still having problem with the vision. She can sometimes count fingers correctly with the right eye, otherwise cannot see. The left eye is fine. - Labs CBC & Chem 7: 09/06/24 22:41 09/08/24 06:55 Assessment and Plan Assessment: * Possible optic neuritis, right eye. Rule out MS. * Anxiety/depression Plan: * MRI of the brain and orbits with and without contrast revealed mild nonspecific multifocal areas of abnormal increased signal intensity predomin antly within the subcortical white matter both cerebral hemisphere. Could represent demyelinating disease but this is a nonspecific finding. No evidence of optic neuritis. No mass, mass effect or acute ischemic event. No pathological enhancement throughout the brain parenchyma. I personally rev iewed MRI, and there is evidence of subcortical white matter lesions, which are much more for patient's age, although the distribution is not classical for MS. Discussed with patient in detail. * Continue Solu-Medrol 1 g IVPB daily for 5 days. Today is day #2. * ESR 28, CRP 1.1/1.0, B12 1282, TSH 2.57, rheumatoid factor <15, RPR nonreactive, hemoglobin A1c 5.4. HIV pending, quantified or TB plus pending, Lyme, MARICARMEN, LIGIA pending. * DVT prophylaxis: Lovenox 40 mg sq daily
[2024-09-09 09:16] LABS: BUN/Creat Ratio 14.83 Ratio (12.00-20.00); Blood Urea Nitrogen 8.9 mg/dL (9.0-27.0); Calcium 8.5 mg/dL (8.7-10.3); Carbon Dioxide 25.6 mmol/L (21.6-31.8); Chloride 108 mmol/L (96-109); Glucose 185 mg/dL (70-110); Sodium 141 mmol/L (135-145)
[2024-09-09] MEDS: ENOXAPARIN 40 MG/0.4 ML SYRINGE SQ SCH (09:16)
[2024-09-09 10:56] LABS: Basophils # (A) 0.01 X 10*3/uL (0.00-0.10); Basophils % (A) 0.1 %; Eosinophils # (A) 0 X 10*3/uL (0.04-0.35); Eosinophils % (A) 0 %; HCT 32.4 % (37.2-46.3); HGB 10.7 g/dL (12.0-15.0); Lymphocytes # (A) 0.63 X 10*3/uL (0.90-5.00); Lymphocytes % (A) 4.9 %; MCH 29.7 pg (27.0-32.0); Mean Platelet Volume 13.4 FL (9.5-12.2); Monocytes # (A) 0.29 X 10*3/uL (0.20-1.00); Monocytes % (A) 2.3 %; NRBC Per 100 WBC 0 X 10*3/uL (0.00-0.01); Neutrophils # (A) 11.84 X 10*3/uL (1.80-7.70); Neutrophils % (A) 92.1 %; Platelet Count 214 X 10*3/uL (140-440); RDW 13.7 % (11.5-14.5); WBC 12.85 X 10*3/uL (4.50-10.00)
[2024-09-09] MEDS ORDERED: DEXTROSE 50% SYRINGE 50 ML IVP PRN ×2 (11:39)
[2024-09-09 12:37] LABS: Glucose,Whole Blood 215 mg/dL (70-110)
[2024-09-09] MEDS: INSULIN LISPRO (HumaLOG) 100 UNIT/ML 10 mL VL SQ SCH (12:39)
[2024-09-09] MEDS: diphenhydrAMINE 25 MG CAP PO PRN (12:57)
[2024-09-09 13:07] LABS: Anti-Smith Ab Interp Negative (Negative)
[2024-09-09 13:08] LABS: HIV 2 AB Non-Reactive (Non-Reactive); HIV AB P24 Non-Reactive (Non-Reactive); HIV P24 AG Non-Reactive (Non-Reactive)
--- NOTE | 2024-09-09 16:31 | P.PN ---
Subjective Progress Note Date: 09/09/24 [facility] [address] [place], [place] [address] Progress Note - SOAP Patient Name: Conchis Boateng Date of : 89 Patient Status: Observation Attending Provider: Candice Hope Date: 09/08/24 14:21 Initialization Date: 09/08/24 14:21 Subjective Progress Note Date: 09/08/24 Hospital course: Patient is a 29-year-old female with no significant past medical history came to the ER yesterday after she was diagnosed with optic neuritis by outpatient waiter/waitress cafeteria. Patient reports that she endorsed right-sided blurry vision a week ago associated with pain behind the eye especially with movement. Additionally, patient has been experiencing frontal headache for the last 6 months. Headaches have gotten worse for the last 2 weeks. Patient also reports episodes of nosebleed. She has also been endorsing generalized weakness, loss of balance, numbness and tingling in upper and lower extremities especially in h er fingertips. Patient reports that she has a strong family history of multiple sclerosis in cousins. Otherwise, patient denies nausea, vomiting, dizziness, chest pain, shortness of breath, abdominal pain, loss of consciousness, or fall. Patient denies any recent upper respiratory tract infection. Patient was evaluated by waiter/waitress cafeteria recently and was advised to come to the ER for further evaluation for multiple sclerosis in the setting of recently diagnosed optic neuritis. Patient reports that she continue to feel blurry in her right eye with only 25% of improvement from last 1 week. Initial laboratory evaluation in the ER shows WBC 6.2, hemoglobin 12.8, platelet count 235, ESR 28, sodium 137 potassium 3.8, BUN 6, creatinine 0.76, calcium 9.1, total bili 0.2, AST 39, ALT 37, ALP 84, CRP 1.1, vitamin B12 1282, TSH 2.5, rheumatoid factor less than 15 CT angio of the head is unremarkable for any significant stenosis. There is 15 mm fibrotic process in the right lung apex. Brain CT shows no acute intracranial process. Review of systems: Pertinent positives and negatives as discussed in HPI, a complete review of systems was performed and all other systems are negative. 09/08/2024 Patient is awake alert and oriented. Still complains of right eye pain with movement. No complaints of headache or dizziness. No fever no chills. Patient was started on methylprednisolone IV 1 g daily. Neurology is on board. MRI of the brain/orbits showed mild nonspecific multifocal areas of abnormal increased signal intensity predominantly within the subcortical white matter both cerebral hemispheres. Could represent demyelinating disease but this is nonspecific finding. No evidence of optic neuritis. 09/09/2024 Patient seen and examined at the bedside. Patient continues to report pain associated with blurry vision of the right eye. She continues to be on IV Solu- Medrol 1 g daily however, it was stopped overnight because of swelling in her right arm. She continues to feel weakness in her hands. Denies any nausea, vomiting, headaches. Infectious and inflammatory etiology workup is pending. Laboratory data and current medications reviewed. Physical examination: Vital signs reviewed General: non toxic, no distress, appears at stated age, obese Derm: no unusual rashes/lesions, warm Head: atraumatic, normocephalic, symmetric Eyes: EOMI, no lid lag, anicteric sclera, pupils equal round reactive to light ENT: Nose and ears atraumatic Neck: No cervical lymphadenopathy, trachea midline, supple Mouth: no lip lesion, mucus membranes moist Cardiovascular: S1S2 reg, no murmur, positive dorsalis pedis pulse bilateral, no edema Lungs: CTA bilateral, no rhonchi, no rales, no accessory muscle use Abdominal: soft, nontender to palpation, no guarding Ext: muscle strength 5 out of 5 in all 4 extremities grossly, no gross muscle atrophy, no contractures, Neuro: CN II-XI grossly intact, no gross focal neuro deficits Psych: Alert, oriented, appropriate affect Assessment/Plan: This is a Patient is a 29-year-old female with no significant past medical history came to the ER yesterday after she was diagnosed with optic neuritis by outpatient waiter/waitress cafeteria. . Case was discussed with ER provider and decision was made to admit the patient for multiple sclerosis Pertinent Labs and images: WBC 12.8, hemoglobin 10.7, sodium 141, potassium 4.0, BUN 8.9, creatinine 0.6, glucose 185, CT angio of the head is unremarkable for any significant stenosis. There is 15 mm fibrotic process in the right lung apex. Brain CT shows no acute intracranial process. Active: #Outpatient diagnosis of optic neuritis #Suspected multiple sclerosis Patient received 1000 mg of IV Solu-Medrol in ED Neurology is on board. Continue with IV Solu-Medrol 1000 mg daily Order workup for infectious and inflammatory etiologies Ordered KIMBERLY, ESR, CRP, MARICARMEN, HIV, syphilis, TB, RF, Lyme antibody TSH, vitamin B12 and serum folate MRI of the brain and orbits with contrast report as above. Continue with IV normal saline at 100 cc/h Monitor CBC. Continue to monitor Consider MRI of the C-spine for MS #Transaminases Monitor CMP. Improved. #Incidental finding of 15 mm fibroid mass in the right lung apex CT angio as above Consider outpatient follow-up #Hyperglycemia secondary to steroids HbA1c 5.4% Accu-Cheks and sliding scale insulin Monitor for hypoglycemia Chronic conditions Anxiety, depression Resume home medications DVT prophylaxis: SCDs GI prophylaxis: None F: IV normal saline at 100 cc/h E: Replete as needed N: Regular diet A: Ambulatory CODE STATUS: Full code Discussed with: Patient Anticipated discharge place: Pending clinical course Dictation was produced using [employer] dictation software. Please excuse any grammatical, word or spelling errors. attestation: I have personally seen and examined the patient with Resident, reviewed the documentation and participated and agree with the assessment and plan as written. Tyson Mayen MD Objective - Vital Signs Vital signs: Vital Signs Temp 97.8 F 09/09/24 07:29 Pulse 74 09/09/24 08:00 Resp 16 09/09/24 08:00 BP 105/56 09/09/24 07:29 Pulse Ox 92 L 09/09/24 07:29 FiO2 Intake & Output 09/08/24 09/09/24 09/09/24 18:59 06:59 18:59 Intake Total 1560 590 Balance 1560 590 Intake: Oral 1560 590 Other: Voiding Method Toilet Toilet # Voids 5 3 - Labs CBC & Chem 7: 09/09/24 04:41 09/09/24 04:41 Labs: Abnormal Lab Results - Last 24 Hours (Table) 09/09/24 09/09/24 Range/Units 04:41 04:41 WBC 12.85 H (4.50-10.00) X 10*3/uL RBC 3.60 L (4.10-5.20) X 10*6/uL Hgb 10.7 L (12.0-15.0) g/dL Hct 32.4 L (37.2-46.3) % MPV 13.4 H (9.5-12.2) FL Immature Gran # 0.08 H (0.00-0.04) X 10*3/uL Neutrophils # 11.84 H (1.80-7.70) X 10*3/uL Lymphocytes # 0.63 L (0.90-5.00) X 10*3/uL Eosinophils # 0 L (0.04-0.35) X 10*3/uL BUN 8.9 L (9.0-27.0) mg/dL Glucose 185 H (70-110) mg/dL Calcium 8.5 L (8.7-10.3) mg/dL
[2024-09-09 17:17] LABS: Glucose,Whole Blood 223 mg/dL (70-110)
[2024-09-09 20:20] LABS: Glucose,Whole Blood 279 mg/dL (70-110)
[2024-09-10 07:03] LABS: Glucose,Whole Blood 119 mg/dL (70-110)
[2024-09-10 08:32] LABS: BUN/Creat Ratio 18.17 Ratio (12.00-20.00); Blood Urea Nitrogen 10.9 mg/dL (9.0-27.0); Calcium 8.8 mg/dL (8.7-10.3); Carbon Dioxide 26.5 mmol/L (21.6-31.8); Chloride 105 mmol/L (96-109); Glucose 136 mg/dL (70-110); Sodium 140 mmol/L (135-145)
--- NOTE | 2024-09-10 08:34 | P.PN ---
Subjective Progress Note Date: 09/09/24 Patient was seen for a follow-up. Patient is sitting comfortably in her bed. Patient states that she has tried to walk and her legs feel stiff. She has to use a walker. She continues to have vision loss in the right eye. Patient states that left eyes started to hurt some and she seen some black dots and squiggly lines across her vision. She admits to having headache /10 for "weeks". She admits to gaining weight of 50 pounds in the last 6 was because of multiple courses of steroids she has received over last 6 months. Patient complains of multiple neurological symptoms. She is noticing weakness of the hands, as she is dropping things. She would drop phone, spoon, glasses, platelets. Patient denies any incontinence of urine, no frequency or urgency. Patient says that when she stands long, she gets pain in the arches of her feet. Objective - Vital Signs Vital signs: Vital Signs Temp 98.1 F 09/09/24 12:07 Pulse 80 09/09/24 12:07 Resp 16 09/09/24 12:07 BP 135/74 09/09/24 12:07 Pulse Ox 92 L 09/09/24 12:07 FiO2 Intake & Output 09/08/24 09/09/24 09/09/24 18:59 06:59 18:59 Intake Total 1560 590 Balance 1560 590 Intake: Oral 1560 590 Other: Voiding Method Toilet Toilet # Voids 5 3 - Exam Patient's mental status, speech and language functions are normal. Cranial nerve examination revealed left pupil appears slightly larger than the right. Both are round and minimally reacting. On muscle strength testing, the strength is normal in the upper limbs distally and proximally. In the lower limbs, ankle dorsiflexion is normal. Hip flexion, she was able to lift her legs off the bed about 6 inches but the strength was normal for active testing. Deep tendon reflexes are symmetric, 3 at the biceps, 3 brachioradialis, 3+ at the knees, 2+ ankles and plantars are downgoing, but patient does have sustained clonus on the left, and 4-5 beat clonus on the right. No ataxia for iiznil-zl-cygu testing. Patient was slow for performing ardl-ol-duzd testing but no obvious ataxia. - Labs CBC & Chem 7: 09/09/24 04:41 09/09/24 04:41 Labs: Abnormal Lab Results - Last 24 Hours (Table) 09/09/24 09/09/24 09/09/24 Range/Units 04:41 04:41 12:35 WBC 12.85 H (4.50-10.00) X 10*3/uL RBC 3.60 L (4.10-5.20) X 10*6/uL Hgb 10.7 L (12.0-15.0) g/dL Hct 32.4 L (37.2-46.3) % MPV 13.4 H (9.5-12.2) FL Immature Gran # 0.08 H (0.00-0.04) X 10*3/uL Neutrophils # 11.84 H (1.80-7.70) X 10*3/uL Lymphocytes # 0.63 L (0.90-5.00) X 10*3/uL Eosinophils # 0 L (0.04-0.35) X 10*3/uL BUN 8.9 L (9.0-27.0) mg/dL Glucose 185 H (70-110) mg/dL POC Glucose (mg/dL) 215 H (70-110) mg/dL Calcium 8.5 L (8.7-10.3) mg/dL 09/09/24 Range/Units 17:12 WBC (4.50-10.00) X 10*3/uL RBC (4.10-5.20) X 10*6/uL Hgb (12.0-15.0) g/dL Hct (37.2-46.3) % MPV (9.5-12.2) FL Immature Gran # (0.00-0.04) X 10*3/uL Neutrophils # (1.80-7.70) X 10*3/uL Lymphocytes # (0.90-5.00) X 10*3/uL Eosinophils # (0.04-0.35) X 10*3/uL BUN (9.0-27.0) mg/dL Glucose (70-110) mg/dL POC Glucose (mg/dL) 223 H (70-110) mg/dL Calcium (8.7-10.3) mg/dL Assessment and Plan Assessment: * Possible optic neuritis, right eye. MRI of the brain revealed multiple subcortical white matter lesions, concerning for WATCH ELECTRICIAN demyelination. No active lesion identified on contrast enhanced images. No evidence of optic neuritis noted on the MRI of the orbits. Rule out pseudotumor cerebri. Patient admits to having weight gain of 50 pounds over last 6 months. * Subjective weakness of the arms and legs, rule out spinal cord involvement. Examination was relatively normal. Patient does have very brisk reflexes. * Anxiety/depression Plan: * MRI of the brain and orbits with and without contrast revealed mild nonspecific multifocal areas of abnormal increased signal intensity predominantly within the subcortical white matter both cerebral hemisphere. Could represent demyelinating disease but this is a nonspecific finding. No evidence of optic neuritis. No mass, mass effect or acute ischemic event. No pathological enhancement throughout the brain parenchyma. I personally reviewed MRI, and there is evidence of subcortical white matter lesions, which are much more for patient's age, although the distribution is not classical for MS. Discussed with patient in detail. * Agree with checking MRI of the cervical and thoracic spine with and without contrast. * Lumbar puncture in the morning to check for opening pressure, rule out pseudotumor cerebri. Rule out MS. Patient cannot have lumbar puncture today because she has received Lovenox this morning. * Continue Solu-Medrol 1 g IVPB daily for 5 days. Today is day #3. * ESR 28, CRP 1.1/1.0, B12 1282, TSH 2.57, rheumatoid factor <15, RPR nonreactive, KIMBERLY negative, Sauer antibodies negative, STUDIO TECHNICIAN VIDEO OPERATOR negative. hemoglo bin A1c 5.4. HIV nonreactive, TB test gold plus negative. Lyme titer negative. LIGIA pending. * DVT prophylaxis: Lovenox 40 mg sq daily
[2024-09-10 12:16] LABS: Glucose,Whole Blood 171 mg/dL (70-110)
--- NOTE | 2024-09-10 13:58 | MR ---
EXAMINATION TYPE: MR cspine/tspine wo/w con DATE OF EXAM: 09/10/2024 COMPARISON: NONE HISTORY: Unsteady gait, evaluate for MS. history of optic neuritis. TECHNIQUE: Multiplanar, multisequence imaging of cervical and thoracic spine are performed without an d with IV contrast, patient injected with 90 cc of gadolinium. FINDINGS: C-SPINE: Sagittal images of the cervical spine show the craniocervical junction to appear within normal limits . The cervical and upper thoracic spinal cord is normal in course, caliber, and signal. Vertebral a lignment is anatomic. The vertebral body and intravertebral disk heights are normal. The bone marro w signal intensity is within normal limits. No suspicious postcontrast enhancement is seen. Axial images show right paracentral disc protrusion at C5-C6 level effacing the anterior thecal sac a nd asymmetric mild left-sided neural foraminal narrowing. Other cervical levels appear within normal limits.. T-SPINE: Spinal cord shows normal course, caliber, and signal as it courses the thoracic spine. Vertebral bod y heights and alignment are satisfactory. Disc space heights are maintained. No large posterior disc herniations are present. Bone marrow signal intensity is preserved. No abnormal postcontrast enhancem ent is seen. Review of the axial images shows no significant spinal canal stenosis or neural foraminal narrowing a t any thoracic level. Small focus of nodular consolidation or atelectasis posterior right upper lobe axial image 14 is noted. Correlate clinically. IMPRESSION: 1. No MRI evidence for demyelinating disease involvement in the cervical or thoracic spinal cord. No abnormal enhancing lesions to suggest active disease. 2. Focal degenerative changes C5-C6 level is noted. [facility], , 09/10/2024 1:56 PM
[2024-09-10 16:57] LABS: Glucose,Whole Blood 144 mg/dL (70-110)
--- NOTE | 2024-09-10 17:00 | P.PN ---
Subjective Progress Note Date: 09/10/24 Hospital course: Patient is a 29-year-old female with no significant past medical history came to the ER yesterday after she was diagnosed with optic neuritis by outpatient registered massage therapist. Patient reports that she endorsed right-sided blurry vision a week ago associated with pain behind the eye especially with movement. Additionally, patient has been experiencing frontal headache for the last 6 months. Headaches have gotten worse for the last 2 weeks. Patient also reports episodes of nosebleed. She has also been endorsing generalized weakness, loss of balance, numbness and tingling in upper and lower extremities especially in her fingertips. Patient reports that she has a strong family history of multiple sclerosis in cousins. Otherwise, patient denies nausea, vomiting, dizziness, chest pain, shortness of breath, abdominal pain, loss of consciousness, or fall. Patient denies any recent upper respiratory tract infection. Patient was evaluated by registered massage therapist recently and was advised to come to the ER for further evaluation for multiple sclerosis in the setting of recently diagnosed optic neuritis. Patient reports that she continue to feel blurry in her right eye with only 25% of improvement from last 1 week. Initial laboratory evaluation in the ER shows WBC 6.2, hemoglobin 12.8, platelet count 235, ESR 28, sodium 137 potassium 3.8, BUN 6, creatinine 0.76, calcium 9.1, total bili 0.2, AST 39, ALT 37, ALP 84, CRP 1.1, vitamin B12 1282, TSH 2.5, rheumatoid factor less than 15 CT angio of the head is unremarkable for any significant stenosis. There is 15 mm fibrotic process in the right lung apex. Brain CT shows no acute intracranial process. Review of systems: Pertinent positives and negatives as discussed in HPI, a complete review of systems was performed and all other systems are negative. 09/08/2024 Patient is awake alert and oriented. Still complains of right eye pain with movement. No complaints of headache or dizziness. No fever no chills. Patient was started on methylprednisolone IV 1 g daily. Neurology is on board. MRI of the brain/orbits showed mild nonspecific multifocal areas of abnormal increased signal intensity predominantly within the subcortical white matter both cerebral hemispheres. Could represent demyelinating disease but this is nonspecific finding. No evidence of optic neuritis. 09/09/2024 Patient seen and examined at the bedside. Patient continues to report pain associated with blurry vision of the right eye. She continues to be on IV Solu- Medrol 1 g daily however, it was stopped overnight because of swelling in her r ight arm. She continues to feel weakness in her hands. Denies any nausea, vomiting, headaches. Infectious and inflammatory etiology workup is pending. 09/10/2024 Patient seen and examined at the bedside. Patient continue experience right eye pain with blurry vision. Patient also noticing dark spots with " squiggly lines" in her left eye vision. Patient continues to be on IV Solu-Medrol 1000 mg daily. Patient underwent MRI of the C-spine and T-spine today with results showing no evidence of demyelinating disease. Patient likely to get LP for further evaluation. Laboratory data and current medications reviewed. Physical examination: Vital signs reviewed General: non toxic, no distress, appears at stated age, obese Derm: no unusual rashes/lesions, warm Head: atraumatic, normocephalic, symmetric Eyes: EOMI, no lid lag, anicteric sclera, pupils equal round reactive to light, decreased visual acuity in right eye. ENT: Nose and ears atraumatic Neck: No cervical lymphadenopathy, trachea midline, supple Mouth: no lip lesion, mucus membranes moist Cardiovascular: S1S2 reg, no murmur, positive dorsalis pedis pulse bilateral, no edema Lungs: CTA bilateral, no rhonchi, no rales, no accessory muscle use Abdominal: soft, nontender to palpation, no guarding Ext: muscle strength 5 out of 5 in all 4 extremities grossly, no gross muscle atrophy, no contractures, Neuro: CN II-XI grossly intact, no gross focal neuro deficits Psych: Alert, oriented, appropriate affect Assessment/Plan: This is a Patient is a 29-year-old female with no significant past medical history came to the ER yesterday after she was diagnosed with optic neuritis by outpatient registered massage therapist. . Case was discussed with ER provider and decision was made to admit the patient for multiple sclerosis Pertinent Labs and images: Sodium 140, potassium 4.0, BUN 10.9, creatinine 0.6, glucose 171 MRI of the C-spine and T-spine showed no evidence of demyelinating disease. Active: #Outpatient diagnosis of optic neuritis #Suspected multiple sclerosis Patient received 1000 mg of IV Solu-Medrol in ED Neurology is on board. Continue with IV Solu-Medrol 1000 mg daily Order workup for infectious and inflammatory etiologies Workup for infectious and inflammatory etiologies, thyroid and vitamin B-12 and folate is negative MRI of the brain and orbits with contrast report as above. Continue with IV normal saline at 75 cc/h Monitor CBC. Continue to monitor MRI of the T-spine CTs are negative LP likely today to rule out pseudotumor cerebri and MS #Transaminases Monitor CMP. Improved. #Incidental finding of 15 mm fibroid mass in the right lung apex CT angio as above Consider outpatient follow-up #Hyperglycemia secondary to steroids HbA1c 5.4% Accu-Cheks and sliding scale insulin Monitor for hypoglycemia Chronic conditions Anxiety, depression Resume home medications DVT prophylaxis: SCDs GI prophylaxis: None F: IV normal saline at 75 cc/h E: Replete as needed N: Regular diet A: Ambulatory CODE STATUS: Full code Discussed with: Patient Anticipated discharge place: Pending clinical course Dictation was produced using [employer] dictation software. Please excuse any grammatical, word or spelling errors. Attestation: I have personally seen and examined the patient with Resident, reviewed the documentation and participated and agree with the assessment and plan as written. Tyson Mayen MD Objective - Vital Signs Vital signs: Vital Signs Temp 97.9 F 09/10/24 14:51 Pulse 70 09/10/24 14:51 Resp 16 09/10/24 14:51 BP 160/95 09/10/24 14:51 Pulse Ox 96 09/10/24 14:51 FiO2 Intake & Output 09/09/24 09/10/24 09/10/24 18:59 06:59 18:59 Intake Total 1979 1020 Balance 1979 1020 Intake: Oral 1979 1020 Other: Voiding Method Toilet Toilet - Labs CBC & Chem 7: 09/11/24 04:41 09/10/24 05:09 Labs: Abnormal Lab Results - Last 24 Hours (Table) 09/09/24 09/09/24 09/09/24 Range/Units 09:18 17:12 20:18 Glucose (70-110) mg/dL POC Glucose (mg/dL) 223 H 279 H (70-110) mg/dL Angiotensin Convert Enz 76 H (8-52) U/L 09/10/24 09/10/24 09/10/24 Range/Units 05:09 07:02 12:14 Glucose 136 H (70-110) mg/dL POC Glucose (mg/dL) 119 H 171 H (70-110) mg/dL Angiotensin Convert Enz (8-52) U/L
[2024-09-10 21:11] LABS: Glucose,Whole Blood 299 mg/dL (70-110)
[2024-09-10 22:39] LABS: Appearance,CSF Clear; CSF Tube Number 4; CSF Tube Volume 5.5
[2024-09-10 22:59] LABS: Nucleated Cells, CSF 1 u/L (0-5); Red Blood Cell,CSF 1 u/L (0-10)
[2024-09-10 23:04] LABS: Glucose,CSF 107 mg/dL (40-70); Total Protein,CSF 19 mg/dL (12-60)
[2024-09-11 07:02] LABS: Glucose,Whole Blood 129 mg/dL (70-110)
--- NOTE | 2024-09-11 07:06 | P.PN ---
Subjective Progress Note Date: 09/10/24 09/10/2024: Patient was seen for a follow-up. Patient continues to have vision loss right eye. The left eye has some clouds,, squiggly lines and black dots. Patient denies any worsening of her left eye vision. Her right eye vision has not improved despite being on high dose steroids. Concern about pseudotumor cerebri because of her subjective weight gain as she mentioned yesterday. 09/09/2024: Patient was seen for a follow-up. Patient is sitting comfortably in her bed. Patient states that she has tried to walk and her legs feel stiff. She has to use a walker. She continues to have vision loss in the right eye. Patient states that left eyes started to hurt some and she seen some black dots and squiggly lines across her vision. She admits to having headache 7/10 for "weeks". She admits to gaining weight of 50 pounds in the last 6 was because of multiple courses of steroids she has received over last 6 months. Patient complains of multiple neurological symptoms. She is noticing weakness of the hands, as she is dropping things. She would drop phone, spoon, glasses, platelets. Patient denies any incontinence of urine, no frequency or urgency. Patient says that when she stands long, she gets pain in the arches of her feet. Objective - Vital Signs Vital signs: Vital Signs Temp 98.5 F 09/10/24 20:00 Pulse 88 09/10/24 20:00 Resp 12 09/10/24 20:00 BP 150/95 09/10/24 20:00 Pulse Ox 95 09/10/24 20:00 FiO2 Intake & Output 09/10/24 09/10/24 09/11/24 06:59 18:59 06:59 Intake Total 1979 2760 Balance 19790 Intake: Oral 1979 2759 Other: Voiding Method Toilet # Voids 5 # Bowel Movements 1 - Exam Patient's mental status, speech and language functions are normal. Cranial nerve examination revealed pupils equal, round and not clearly reacting. Patient is very photophobic and did not let pupillary reflex checked in detail. On muscle strength testing, the strength is normal in the upper limbs distally and proximally. In the lower limbs, ankle dorsiflexion is normal. Hip flexion, she was able to lift her legs off the bed about 6 inches but the strength was no rmal for active testing. Deep tendon reflexes are symmetric, 3 at the biceps, 3 brachioradialis, 3+ at the knees, 2+ ankles and plantars are downgoing, but patient does have sustained clonus on the left, and 4-5 beat clonus on the right. No ataxia for usplgy-oj-lorc testing. Patient was slow for performing ctfr-oz-xfsy testing but no obvious ataxia. - Labs CBC & Chem 7: 09/09/24 04:41 09/10/24 05:09 Labs: Abnormal Lab Results - Last 24 Hours (Table) 09/09/24 09/10/24 09/10/24 Range/Units 09:18 05:09 07:02 Glucose 136 H (70-110) mg/dL POC Glucose (mg/dL) 119 H (70-110) mg/dL Angiotensin Convert Enz 76 H (8-52) U/L 09/10/24 09/10/24 Range/Units 12:14 16:55 Glucose (70-110) mg/dL POC Glucose (mg/dL) 171 H 144 H (70-110) mg/dL Angiotensin Convert Enz (8-52) U/L Assessment and Plan Assessment: * Possible optic neuritis, right eye. MRI of the brain revealed multiple subcortical white matter lesions, concerning for BILLET HEADER demyelination. No active lesion identified on contrast enhanced images. No evidence of optic neuritis noted on the MRI of the orbits. Rule out pseudotumor cerebri. Patient admits to having weight gain of 50 pounds over last 6 months. * Subjective weakness of the arms and legs, rule out spinal cord involvement. Examination was relatively normal. Patient does have very brisk reflexes. * Anxiety/depression Plan: * MRI of the brain and orbits with and without contrast revealed mild nonspecific multifocal areas of abnormal increased signal intensity predominan tly within the subcortical white matter both cerebral hemisphere. Could represent demyelinating disease but this is a nonspecific finding. No evidence of optic neuritis. No mass, mass effect or acute ischemic event. No pathological enhancement throughout the brain parenchyma. I personally revie wed MRI, and there is evidence of subcortical white matter lesions, which are much more for patient's age, although the distribution is not classical for MS. Discussed with patient in detail. * MRI of the cervical and thoracic spine with and without contrast revealed no MRI evidence for demyelinating disease involving the cervical or thoracic spinal cord. No abnormal enhancing lesions to suggest active disease. Focal degenerative changes C5-C6 level is noted. I personally reviewed MRI, agree w ith the findings. No evidence of demyelination of the spinal cord. * Lumbar puncture was performed at bedside today. All possible risks and benefits were informed, in the presence of nursing staff. CSF opening pressure was 22.5 cm, which is borderline elevated. I therefore did drain 15 mL of spinal fluid. CSF sent for analysis. * Continue Solu-Medrol 1 g IVPB daily for 5 days. Today is day #4. * ESR 28, CRP 1.1/1.0, B12 1282, TSH 2.57, rheumatoid factor <15, RPR nonreactive, KIMBERLY negative, Sauer antibodies negative, HOME MISSION WORKER negative. hemoglobin A1c 5.4. HIV nonreactive, TB test gold plus negative. Lyme titer negative. LIGIA level elevated 76 (8-52). There was sent CSF-LIGIA level as well. * DVT prophylaxis: Lovenox 40 mg sq daily
[2024-09-11 08:22] LABS: Basophils # (A) 0.04 X 10*3/uL (0.00-0.10); Basophils % (A) 0.3 %; Eosinophils # (A) 0.05 X 10*3/uL (0.04-0.35); Eosinophils % (A) 0.4 %; HCT 36.6 % (37.2-46.3); HGB 12.1 g/dL (12.0-15.0); Lymphocytes # (A) 1.01 X 10*3/uL (0.90-5.00); Lymphocytes % (A) 8.3 %; MCH 29.2 pg (27.0-32.0); MCHC 33.1 g/dL (32.0-37.0); MCV 88.2 FL (80.0-97.0); Mean Platelet Volume 12.9 FL (9.5-12.2); Monocytes # (A) 0.76 X 10*3/uL (0.20-1.00); Monocytes % (A) 6.2 %; NRBC Per 100 WBC 0 X 10*3/uL (0.00-0.01); Platelet Count 254 X 10*3/uL (140-440); RBC 4.15 X 10*6/uL (4.10-5.20); RDW 13.1 % (11.5-14.5); WBC 12.18 X 10*3/uL (4.50-10.00)
[2024-09-11 12:09] LABS: Glucose,Whole Blood 156 mg/dL (70-110)
--- NOTE | 2024-09-11 15:33 | P.PN ---
Subjective Progress Note Date: 09/11/24 Hospital course: Patient is a 29-year-old female with no significant past medical history came to the ER yesterday after she was diagnosed with optic neuritis by outpatient cement conveyor operator. Patient reports that she endorsed right-sided blurry vision a week ago associated with pain behind the eye especially with movement. Additionally, patient has been experiencing frontal headache for the last 6 months. Headaches have gotten worse for the last 2 weeks. Patient also reports episodes of nosebleed. She has also been endorsing generalized weakness, loss of balance, numbness and tingling in upper and lower extremities especially in her fingertips. Patient reports that she has a strong family history of multiple sclerosis in cousins. Otherwise, patient denies nausea, vomiting, dizziness, chest pain, shortness of breath, abdominal pain, loss of consciousness, or fall. Patient denies any recent upper respiratory tract infection. Patient was evaluated by cement conveyor operator recently and was advised to come to the ER for further evaluation for multiple sclerosis in the setting of recently diagnosed optic neuritis. Patient reports that she continue to feel blurry in her right eye with only 25% of improvement from last 1 week. Initial laboratory evaluation in the ER shows WBC 6.2, hemoglobin 12.8, platelet count 235, ESR 28, sodium 137 potassium 3.8, BUN 6, creatinine 0.76, calcium 9.1, total bili 0.2, AST 39, ALT 37, ALP 84, CRP 1.1, vitamin B12 1282, TSH 2.5, rheumatoid factor less than 15 CT angio of the head is unremarkable for any significant stenosis. There is 15 mm fibrotic process in the right lung apex. Brain CT shows no acute intracranial process. Review of systems: Pertinent positives and negatives as discussed in HPI, a complete review of systems was performed and all other systems are negative. 09/08/2024 Patient is awake alert and oriented. Still complains of right eye pain with movement. No complaints of headache or dizziness. No fever no chills. Patient was started on methylprednisolone IV 1 g daily. Neurology is on board. MRI of the brain/orbits showed mild nonspecific multifocal areas of abnormal increased signal intensity predominantly within the subcortical white matter both cerebral hemispheres. Could represent demyelinating disease but this is nonspecific finding. No evidence of optic neuritis. 09/09/2024 Patient seen and examined at the bedside. Patient continues to report pain associated with blurry vision of the right eye. She continues to be on IV Solu- Medrol 1 g daily however, it was stopped overnight because of swelling in her r ight arm. She continues to feel weakness in her hands. Denies any nausea, vomiting, headaches. Infectious and inflammatory etiology workup is pending. 09/10/2024 Patient seen and examined at the bedside. Patient continue experience right eye pain with blurry vision. Patient also noticing dark spots with " squiggly lines" in her left eye vision. Patient continues to be on IV Solu-Medrol 1000 mg daily. Patient underwent MRI of the C-spine and T-spine today with results showing no evidence of demyelinating disease. Patient likely to get LP for further evaluation. 09/11/2024 Patient seen and examined at the bedside. No acute events overnight. Patient did not experience pain in the right eye associated with blurry vision. She continues to see some dark spots with cellulitis in her left eye as well. However her vision in the left eye is intact. She continues to be on IV Solu- Medrol at 1000 mg daily. She underwent lumbar puncture yesterday with opening pressure of 22.5 cm H2O. Laboratory data and current medications reviewed. Physical examination: Vital signs reviewed General: non toxic, no distress, appears at stated age, obese Derm: no unusual rashes/lesions, warm Head: atraumatic, normocephalic, symmetric Eyes: EOMI, no lid lag, anicteric sclera, pupils equal round reactive to light, decreased visual acuity in right eye. ENT: Nose and ears atraumatic Neck: No cervical lymphadenopathy, trachea midline, supple Mouth: no lip lesion, mucus membranes moist Cardiovascular: S1S2 reg, no murmur, positive dorsalis pedis pulse bilateral, no edema Lungs: CTA bilateral, no rhonchi, no rales, no accessory muscle use Abdominal: soft, nontender to palpation, no guarding Ext: muscle strength 5 out of 5 in all 4 extremities grossly, no gross muscle atrophy, no contractures, Neuro: CN II-XI grossly intact, no gross focal neuro deficits Psych: Alert, oriented, appropriate affect Assessment/Plan: This is a Patient is a 29-year-old female with no significant past medical h istory came to the ER yesterday after she was diagnosed with optic neuritis by outpatient cement conveyor operator. . Case was discussed with ER provider and decision was made to admit the patient for multiple sclerosis Pertinent Labs and images: WBC 12.18, platelet count 254, glucose 156 MRI of the C-spine and T-spine showed no evidence of demyelinating disease. Active: #Outpatient diagnosis of optic neuritis #Suspected multiple sclerosis Patient received 1000 mg of IV Solu-Medrol in ED Neurology is on board. Continue with IV Solu-Medrol 1000 mg daily Order workup for infectious and inflammatory etiologies Workup for infectious and inflammatory etiologies, thyroid and vitamin B-12 and folate is negative CSF fluid analysis is pending, CSF glucose is elevated 107 MRI of the brain and orbits with contrast report as above. Continue with IV normal saline at 75 cc/h Monitor CBC. Continue to monitor MRI of the T-spine CTs are negative LP likely today to rule out pseudotumor cerebri and MS #Transaminases Monitor CMP. Improved. #Incidental finding of 15 mm fibroid mass in the right lung apex CT angio as above Consider outpatient follow-up #Hyperglycemia secondary to steroids HbA1c 5.4% Accu-Cheks and sliding scale insulin Monitor for hypoglycemia Chronic conditions Anxiety, depression Resume home medications DVT prophylaxis: SCDs GI prophylaxis: None F: IV normal saline at 75 cc/h E: Replete as needed N: Regular diet A: Ambulatory CODE STATUS: Full code Discussed with: Patient Anticipated discharge place: Pending clinical course Attestation: I have personally seen and examined the patient with Resident, reviewed the documentation and participated and agree with the assessment and plan as written. Tyson Mayen MD Objective - Vital Signs Vital signs: Vital Signs Temp 97.9 F 09/11/24 14:00 Pulse 87 09/11/24 14:00 Resp 16 09/11/24 14:00 BP 134/84 09/11/24 14:00 Pulse Ox 95 09/11/24 14:00 FiO2 Intake & Output 09/10/24 09/11/24 09/11/24 18:59 06:59 18:59 Intake Total 2760 1080 Balance 2760 1080 Intake: Oral 2760 1080 Other: Voiding Method Toilet Toilet # Voids 5 1 # Bowel Movements 1 - Labs CBC & Chem 7: 09/12/24 05:44 09/10/24 05:09 Labs: Abnormal Lab Results - Last 24 Hours (Table) 09/10/24 09/10/24 09/10/24 Range/Units 16:55 21:05 21:09 WBC (4.50-10.00) X 10*3/uL Hct (37.2-46.3) % MPV (9.5-12.2) FL Immature Gran # (0.00-0.04) X 10*3/uL Neutrophils # (1.80-7.70) X 10*3/uL POC Glucose (mg/dL) 144 H 299 H (70-110) mg/dL CSF Glucose 107 H (40-70) mg/dL 09/11/24 09/11/24 09/11/24 Range/Units 04:41 07:01 12:08 WBC 12.18 H (4.50-10.00) X 10*3/uL Hct 36.6 L (37.2-46.3) % MPV 12.9 H (9.5-12.2) FL Immature Gran # 0.22 H (0.00-0.04) X 10*3/uL Neutrophils # 10.10 H (1.80-7.70) X 10*3/uL POC Glucose (mg/dL) 129 H 156 H (70-110) mg/dL CSF Glucose (40-70) mg/dL Microbiology - Last 24 Hours (Table) 09/10/24 21:05 CSF Gram Stain - Preliminary Cerebral Spinal Fluid
[2024-09-11 17:09] LABS: Glucose,Whole Blood 209 mg/dL (70-110)
[2024-09-11 20:48] LABS: Glucose,Whole Blood 229 mg/dL (70-110)
[2024-09-11] MEDS: acetaZOLAMIDE 250 MG TAB PO SCH (21:45)
[2024-09-12 07:07] LABS: Glucose,Whole Blood 120 mg/dL (70-110)
--- NOTE | 2024-09-12 07:55 | P.PN ---
Subjective Progress Note Date: 09/11/24 09/11/2024: Patient was seen for follow-up. Patient is sitting comfortably in the bed. Keeps her room dark because light bothers her. Patient denies any improvement in her right eye. Denies any worsening or improvement of the left eye. Patient states her headache has improved since lumbar puncture, but not the vision. Continues to have weakness as well. No new concerns otherwise. 09/10/2024: Patient was seen for a follow-up. Patient continues to have vision loss right eye. The left eye has some clouds,, squiggly lines and black dots. Patient denies any worsening of her left eye vision. Her right eye vision has not improved despite being on high dose steroids. Concern about pseudotumor cerebri because of her subjective weight gain as she mentioned yesterday. 09/09/2024: Patient was seen for a follow-up. Patient is sitting comfortably in her bed. Patient states that she has tried to walk and her legs feel stiff. She has to use a walker. She continues to have vision loss in the right eye. Patient states that left eyes started to hurt some and she seen some black dots and squiggly lines across her vision. She admits to having headache 7/10 for "weeks". She admits to gaining weight of 50 pounds in the last 6 was because of multiple courses of steroids she has received over last 6 months. Patient complains of multiple neurological symptoms. She is noticing weakness of the hands, as she is dropping things. She would drop phone, spoon, glasses, platelets. Patient denies any incontinence of urine, no frequency or urgency. Patient says that when she stands long, she gets pain in the arches of her feet. Objective - Vital Signs Vital signs: Vital Signs Temp 97.9 F 09/11/24 14:00 Pulse 87 09/11/24 14:00 Resp 16 09/11/24 14:00 BP 134/84 09/11/24 14:00 Pulse Ox 95 09/11/24 14:00 FiO2 Intake & Output 09/10/24 09/11/24 09/11/24 18:59 06:59 18:59 Intake Total 2760 1080 Balance 2760 1080 Intake: Oral 2760 1080 Other: Voiding Method Toilet Toilet # Voids 5 1 # Bowel Movements 1 - Exam Patient's mental status, speech and language functions are normal. Cranial nerve examination revealed pupils equal, round and not clearly reacting. Patient is very photophobic and did not let pupillary reflex checked in detail. On muscle strength testing, the strength is normal in the upper limbs distally and proximally. In the lower limbs, ankle dorsiflexion is normal. Hip flexion, she was able to lift her legs off the bed about 6 inches but the strength was normal for active testing. Deep tendon reflexes are symmetric, 3 at the biceps, 3 brachioradialis, 3+ at the knees, 2+ ankles and plantars are downgoing, but patient does have sustained clonus on the left, and 4-5 beat clonus on the right. No ataxia for [id number] testing. Patient was slow for performing [id number] testing but no obvious ataxia. - Labs CBC & Chem 7: 09/11/24 04:41 09/10/24 05:09 Labs: Abnormal Lab Results - Last 24 Hours (Table) 09/10/24 09/10/24 09/10/24 Range/Units 16:55 21:05 21:09 WBC (4.50-10.00) X 10*3/uL Hct (37.2-46.3) % MPV (9.5-12.2) FL Immature Gran # (0.00-0.04) X 10*3/uL Neutrophils # (1.80-7.70) X 10*3/uL POC Glucose (mg/dL) 144 H 299 H (70-110) mg/dL CSF Glucose 107 H (40-70) mg/dL 09/11/24 09/11/24 09/11/24 Range/Units 04:41 07:01 12:08 WBC 12.18 H (4.50-10.00) X 10*3/uL Hct 36.6 L (37.2-46.3) % MPV 12.9 H (9.5-12.2) FL Immature Gran # 0.22 H (0.00-0.04) X 10*3/uL Neutrophils # 10.10 H (1.80-7.70) X 10*3/uL POC Glucose (mg/dL) 129 H 156 H (70-110) mg/dL CSF Glucose (40-70) mg/dL Microbiology - Last 24 Hours (Table) 09/10/24 21:05 CSF Gram Stain - Preliminary Cerebral Spinal Fluid Assessment and Plan Assessment: * Possible optic neuritis, right eye. MRI of the brain revealed multiple subcortical white matter lesions, concerning for PHONE BANKER demyelination. No active lesion identified on contrast enhanced images. No evidence of optic neuritis noted on the MRI of the orbits. Rule out pseudotumor cerebri. Patient admits to having weight gain of 50 pounds over last 6 months. CSF opening pressure borderline 22.5 cm. * Subjective weakness of the arms and legs, unclear etiology. MRI of the cervical and thoracic spine showed no abnormal signal or enhancement. Examination was relatively normal. Patient does have very brisk reflexes. * Anxiety/depression Plan: * MRI of the brain and orbits with and without contrast revealed mild nonspecific multifocal areas of abnormal increased signal intensity predominantly within the subcortical white matter both cerebral hemisphere. Could represent demyelinating disease but this is a nonspecific finding. No evidence of optic neuritis. No mass, mass effect or acute ischemic event. No pathological enhancement throughout the brain parenchyma. I personally reviewed MRI, and there is evidence of subcortical white matter lesions, which are much more for patient's age, although the distribution is not classical for MS. Discussed with patient in detail. * MRI of the cervical and thoracic spine with and without contrast revealed no MRI evidence for demyelinating disease involving the cervical or thoracic spinal cord. No abnormal enhancing lesions to suggest active disease. Focal degenerative changes C5-C6 level is noted. I personally reviewed MRI, agree with the findings. No evidence of demyelination of the spinal cord. * Lumbar puncture was performed at bedside today. All possible risks and benefits were informed, in the presence of nursing staff. CSF opening pressure was 22.5 cm, which is borderline elevated. I therefore did drain 15 mL of spinal fluid. * CSF was clear and colorless, 1 WBC, 1 RBC, glucose 107 and total CSF protein 19 (12-60) * Await CSF MS panel, comprehensive viral panel detection, CSF LIGIA * I spoke to Dr. Mahdi White, automatic outsole cutter, who saw the patient outpatient. He mentioned that patient's ophthalmological examination was normal. There was no right APD. He did not see any papilledema. I discussed with him about results of the MRIs, and spinal fluid. He agreed that there is very low potential for pseudotumor cerebri, but given the benefits of doubt, started Diamox 250 mg twice a day and he will follow patient in his office. He mentioned that patient's symptoms were somewhat inconsistent with the ophthalmologic examination. Likewise physical examination is inconsistent with the MRI findings as well. * Continue Solu-Medrol 1 g IVPB daily for 5 days. Today is day #5. * ESR 28, CRP 1.1/1.0, B12 1282, TSH 2.57, rheumatoid factor <15, RPR nonreactive, KIMBERLY negative, Sauer antibodies negative, BRASS POURER negative. hem oglobin A1c 5.4. HIV nonreactive, TB test gold plus negative. Lyme titer negative. LIGIA level elevated 76 (8-52). We will also check vitamin E, myeloperoxidase antibodies, ANCA antibodies, anti-MOG and NMO antibodies. * PT OT evaluate gait. Potential discharge in the morning. * DVT prophylaxis: Lovenox 40 mg sq daily
[2024-09-12 08:18] VITALS: TEMP 97.8
[2024-09-12 08:53] LABS: Basophils # (A) 0.04 X 10*3/uL (0.00-0.10); Basophils % (A) 0.3 %; Eosinophils # (A) 0 X 10*3/uL (0.04-0.35); Eosinophils % (A) 0 %; HCT 37.9 % (37.2-46.3); HGB 12.5 g/dL (12.0-15.0); Lymphocytes # (A) 0.99 X 10*3/uL (0.90-5.00); Lymphocytes % (A) 7.2 %; MCH 29.2 pg (27.0-32.0); MCV 88.6 FL (80.0-97.0); Mean Platelet Volume 12.9 FL (9.5-12.2); Monocytes # (A) 0.69 X 10*3/uL (0.20-1.00); NRBC Per 100 WBC 0 X 10*3/uL (0.00-0.01); Neutrophils # (A) 11.74 X 10*3/uL (1.80-7.70); Neutrophils % (A) 85.5 %; Platelet Count 256 X 10*3/uL (140-440); RBC 4.28 X 10*6/uL (4.10-5.20); RDW 13.2 % (11.5-14.5); WBC 13.73 X 10*3/uL (4.50-10.00)
[2024-09-12 12:04] LABS: Glucose,Whole Blood 166 mg/dL (70-110)
[2024-09-12 13:19] VITALS: BP 98/65; PULSE 78; RESP 15
[2024-09-12 13:59] LABS: C-ANCA <1:20 Titer (<1:20)
--- NOTE | 2024-09-12 16:42 | P.DS ---
Providers Date of admission: 09/07/24 01:13 Attending physician: Candice Hope Consults: 09/07/24 01:10 Consult Physician Routine Consulting Provider: Lopez White Consult Reason/Comments: ?MS, optic neuritis Do you want consulting provider notified?: Already Contacted Primary care physician: Physician Nonstaff Hospital Course: Discharge Diagnosis: #Likely optic neuritis in the right eye with suspicion for MS #Weakness and numbness in upper and lower extremities, unclear etiology Hospital Course: Patient is a 29-year-old female with no significant past medical history came to the ER yesterday after she was diagnosed with optic neuritis by outpatient crm business analyst who advised patient to go to the ER for further evaluation for possible MS.. Patient reports that she endorsed right-sided blurry vision a week ago associated with pain behind the eye especially with movement. Additionally, patient has been experiencing frontal headache for the last 6 months. Headaches have gotten worse for the last 2 weeks. Patient also reports episodes of nosebleed. She has also been endorsing generalized weakness, loss of balance, numbness and tingling in upper and lower extremities especially in her toes and fingertips. Patient reports that she has a strong family history of multiple sclerosis in cousins. Otherwise, patient denies nausea, vomiting, dizziness, chest pain, shortness of breath, abdominal pain, loss of consciousness, or fall. Patient denies any recent upper respiratory tract infection. Initial laboratory evaluation in the ER shows WBC 6.2, hemoglobin 12.8, platelet count 235, ESR 28, sodium 137 potassium 3.8, BUN 6, creatinine 0.76, calcium 9.1, total bili 0.2, AST 39, ALT 37, ALP 84, CRP 1.1, vitamin B12 1282, TSH 2.5, rheumatoid factor less than 15 CT angio of the head is unremarkable for any significant stenosis. There is 15 mm fibrotic process in the right lung apex. Brain CT shows no acute intracranial process. Neurology was consulted. Patient was started on methylprednisolone IV 1 g daily. MRI of the brain/orbits showed mild nonspecific multifocal areas of abnormal increased signal intensity predominantly within the subcortical white matter both cerebral hemispheres. Could represent demyelinating disease but this is nonspecific finding. No evidence of optic neuritis. Patient underwent MRI of the C-spine and T-spine today with results showing no evidence of demyelinating disease. Patient continues to report pain associated with blurry vision of the right eye. She continues to feel weakness in her hands and feet. Patient also started noticing dark spots with " squiggly lines" in her left eye vision. She underwent lumbar puncture with opening pressure of 22.5 cm H2O. CSF fluid analysis was negative for MS and infectious etiology. Workup for infectious and inflammatory etiologies has been negative. Patient otherwise hemodynamically stable and medically optimized for discharge. Patient to be discharged with support cane for walking. Patient will be taking taper dose of prednisone and Diamox to 50 mg twice daily. Patient is advised to see PCP and neurologist within 1 to 2 weeks. Discharge disposition: Home with support cane Vital signs reviewed. General: non toxic, no distress, appears at stated age, obese Derm: no unusual rashes/lesions, warm Head: atraumatic, normocephalic, symmetric Eyes: EOMI, no lid lag, anicteric sclera, pupils equal round reactive to light, decreased visual acuity in right eye. ENT: Nose and ears atraumatic Neck: No cervical lymphadenopathy, trachea midline, supple Mouth: no lip lesion, mucus membranes moist Cardiovascular: S1S2 reg, no murmur, positive dorsalis pedis pulse bilateral, no edema Lungs: CTA bilateral, no rhonchi, no rales, no accessory muscle use Abdominal: soft, nontender to palpation, no guarding Ext: muscle strength 5 out of 5 in all 4 extremities grossly, no gross muscle atrophy, no contractures, Neuro: CN II-XI grossly intact, no gross focal neuro deficits Psych: Alert, oriented, appropriate affect Dictation was produced using [employer] dictation software. Please excuse any grammatical, word or spelling errors. Attestation: I have personally seen and examined the patient with Resident, reviewed the documentation and participated and agree with the assessment and plan as written. Tyson Mayen MD Patient Condition at Discharge: Stable Plan - Discharge Summary Discharge Rx Participant: No New Discharge Prescriptions: New predniSONE 10 mg PO DAILY #21 tab acetaZOLAMIDE [Diamox] 250 mg PO BID #30 tab Continue hydrOXYzine HCL [Atarax] 25 mg PO BID PRN PRN Reason: Itching Omeprazole 20 mg PO DAILY Escitalopram [Lexapro] 10 mg PO HS Buprenorphine/Naloxone 8Mg/2Mg [Suboxone 8-2Mg Film] 1 film SL TID PRN PRN Reason: Pain Discharge Medication List Buprenorphine/Naloxone 8Mg/2Mg [Suboxone 8-2Mg Film] 1 film SL TID PRN 09/07/24 [History] Escitalopram [Lexapro] 10 mg PO HS 09/07/24 [History] Omeprazole 20 mg PO DAILY 09/07/24 [History] hydrOXYzine HCL [Atarax] 25 mg PO BID PRN 09/07/24 [History] acetaZOLAMIDE [Diamox] 250 mg PO BID #30 tab 09/12/24 [Rx] predniSONE 10 mg PO DAILY #21 tab 09/12/24 [Rx] Follow up Appointment(s)/Referral(s): Balbir Small MD [REFERRING] - 1 Week (Office closed at time of discharge. ) Nonstaff,Physician [Primary Care Provider] - 1-2 days Patient Instructions/Handouts: Acetazolamide (By mouth), Prednisone (By mouth), Acute Headache (DC), Fall Prevention (DC), Optic Neuritis (DC) Activity/Diet/Wound Care/Special Instructions: Please follow-up with your PCP, neurologist Dr. Odalys Small and crm business analyst Dr. Amber White within 1 to 2 weeks. Please see list of [facility] Primary Care Physicians and establish yourself with a medical doctor. Discharge Disposition: HOME SELF-CARE
[2024-09-13 11:16] LABS: VDRL, Qualitative CSF Nonreactive (Nonreactive)
[2024-09-13 11:23] LABS: IgG - CSF 0.5 mg/dL (0.0 - 3.4); IgG/Albumin Index (CSF) 0.53 (0.00 - 0.77); Immunoglobulin G 873 mg/dL (700 - 1600)
== END 2024-09-12 18:51 | disposition home or self-care (01) | DRG 59 ==
LOC: EC 19:47 → 5NMEDONC 09-07 01:12 → OBSVTOIN 09-07 01:13 → 5NMEDONC 09-07 02:50
PROVIDERS: ADMIT Hospitalist; ATTEND Hospitalist
DX: G35 Multiple sclerosis (principal); H46.9 Unspecified optic neuritis; F32.A Depression, unspecified; H54.61 Unqualified visual loss, right eye, normal vision left eye; F41.9 Anxiety disorder, unspecified; R04.0 Epistaxis; T38.0X5A Adverse effect of glucocorticoids and synthetic analogues, initial encounter; R73.9 Hyperglycemia, unspecified; R91.8 Other nonspecific abnormal finding of lung field; Z87.891 Personal history of nicotine dependence; R51.9 Headache, unspecified
CPT/HCPCS: 36415; 70450; 70496; 70498; 70543; 70553; 72156; 72157; 80048; 80053; 82040; 82042; 82164; 82607; 82784; 82945; 83036; 83516; 83873; 83916; 84157; 84443; 84590; 85025; 85652; 86038; 86140; 86235; 86255; 86431; 86480; 86592; 86618; 86780; 87070; 87205; 87390; 89050; 96361; 96365; 96375; 99285